=== PATIENT | female | born 1970 | race Caucasian/White ===

== ENCOUNTER 2017-04-11 19:56 | Emergency (ER) | payer BC, OTHER ==
[2017-04-11 20:11] VITALS: BP 189/90
[2017-04-11] MEDS ORDERED: Bupivacaine 0.5%/EPINEPHrine 1:200,000 30 ML SDV INJECT ONE (20:20)
[2017-04-11] MEDS ORDERED: Take Home: Amoxicillin/Clavulanate K 875-125 MG Tab, 2 Tab Pack PO ONE (20:21)
--- NOTE | 2017-04-11 20:45 | EDM.PDOC ---
ED HPI GENERAL MEDICAL PROBLEM - General Chief Complaint: General Stated Complaint: Toothache Time Seen by Provider: 04/11/17 20:07 Source of Information: Reports: Patient History Limitations: Reports: No Limitations - History of Present Illness INITIAL COMMENTS - FREE TEXT/NARRATIVE: Patient states that she started having pain and swelling in her second molar in the right lower jaw yesterday afternoon. She called her dentist to get a refill on her antibiotic for her reoccurring dental abscess, but they stated she would have to be seen first. She was unable to get an appointment that day and thought she could tough it out through the weekend. She states the pain has gotten too bad for her to tolerate. She has hydrocodone at home which has not been effective in relieving the pain. I asked if she would like me to do a dental block for pain relief and she agreed to this. Onset: Gradual Onset Date: 04/10/17 Onset Time: 11:30 Duration: Getting Worse Location: Reports: Other (right lower jaw second molar from the rear) Quality: Reports: Ache, Sharp, Throbbing Severity: Severe Improves with: Reports: None Worsens with: Reports: Eating Associated Symptoms: Reports: No Other Symptoms Treatments FLUID DYNAMICIST: Reports: Acetaminophen, NSAIDS, Other (see below) Other Treatments FLUID DYNAMICIST: Hydrocodone (3) - Related Data Allergies Allergy/AdvReac Type Severity Reaction Status Date / Time No Known Allergies Allergy Verified 04/11/17 20:20 Home Meds: Home Meds Amoxicillin/Potassium Clav [Augmentin 875-125 Tablet] 1 each PO BID #16 tablet 04/11/17 [Rx] Social & Family History - Tobacco Use Smoking Status *Q: Never Smoker - Caffeine Use Caffeine Use: Reports: Soda - Recreational Drug Use Recreational Drug Use: No ED ROS GENERAL - Review of Systems Review Of Systems: See Below Constitutional: Reports: No Symptoms HEENT: Reports: Dental Pain Respiratory: Reports: No Symptoms Cardiovascular: Reports: No Symptoms Endocrine: Reports: No Symptoms GI/Abdominal: Reports: No Symptoms : Reports: No Symptoms Musculoskeletal: Reports: No Symptoms Skin: Reports: No Symptoms Neurological: Reports: No Symptoms Psychiatric: Reports: No Symptoms Hematologic/Lymphatic: Reports: No Symptoms Immunologic: Reports: No Symptoms ED EXAM, GENERAL - Physical Exam Exam: See Below Exam Limited By: No Limitations General Appearance: Alert, WD/WN, No Apparent Distress Eye Exam: Bilateral Eye: Normal Inspection, PERRL Ears: Normal External Exam, Normal Canal, Hearing Grossly Normal, Normal TMs Nose: Normal Inspection, Normal Mucosa, No Blood Throat/Mouth: Normal Lips, Normal Oropharynx, Normal Voice, No Airway Compromise , Other (Tooth #30 cracked crown with increased redness and swelling to the base of the tooth.) Head: Atraumatic, Normocephalic Neck: Normal Inspection, Supple, Non-Tender, Full Range of Motion Respiratory/Chest: No Respiratory Distress, Lungs Clear, Normal Breath Sounds, No Accessory Muscle Use, Chest Non-Tender Cardiovascular: Normal Peripheral Pulses, Regular Rate, Rhythm, No Edema, No Gallop, No JVD, No Murmur, No Rub Peripheral Pulses: 2+: Radial (L), Radial (R) GI/Abdominal: Normal Bowel Sounds, Soft, Non-Tender, No Organomegaly, No Distention, No Abnormal Bruit, No Mass Neurological: Alert, Oriented, Normal Gait Psychiatric: Normal Affect, Normal Mood Skin Exam: Warm, Dry, Intact, Normal Color, No Rash Lymphatic: No Adenopathy Course - Vital Signs Text/Narrative:: Alveolar block of tooth number 30 right lower jaw with 0.5% bupivacaine 5 mL. The patient tolerated this well. She stated that her pain went down to a 3/10 shortly after the injection. Last Recorded V/S: Last Vital Signs Temp 37.2 C 04/11/17 20:09 Pulse 76 04/11/17 20:09 Resp 16 04/11/17 20:09 BP 189/90 H 04/11/17 20:09 Pulse Ox 98 04/11/17 20:09 - Orders/Labs/Meds Meds: Medications Discontinued Medications Generic Name Dose Route Start Last Admin Trade Name Martell PRN Reason Stop Dose Admin Amoxicillin/Clavulanate Potassium 2 packet 04/11/17 20:21 04/11/17 20:32 Take Home: Amox/Clavulanate 875-12, 2 Tab Pac PO 04/11/17 20:22 2 packet ONETIME ONE Administration Bupivacaine HCl/Epinephrine Bitart 30 ml 04/11/17 20:20 04/11/17 20:33 Marcaine 0.5%/Epinephrine 1:200,000 INJECT 04/11/17 20:21 30 ml ONETIME ONE Administration Departure - Departure Time of Disposition: 21:00 Disposition: Home, Self-Care 01 Condition: good Clinical Impression: Dental abscess - Discharge Information Prescriptions: Amoxicillin/Potassium Clav [Augmentin 875-125 Tablet] 1 each PO BID #16 tablet Forms: ED Department Discharge - Assessment/Plan Assessment:: Dental Abscess
== END 2017-04-11 21:25 | disposition home or self-care (01) ==
LOC: VM.ED 19:56
DX: K04.7 Periapical abscess without sinus (principal)
CPT/HCPCS: 99282; A9270; 96372

== ENCOUNTER 2017-04-13 17:53 | Emergency (ER) | payer BC ==
[2017-04-13 18:08] VITALS: BP 120/66
[2017-04-13] MEDS ORDERED: cefTRIAXone 2 GM, Lidocaine 1% 4.2 ML IM ONE ×2 (18:26)
[2017-04-13] MEDS ORDERED: predniSONE 20 MG Tab PO ONE (18:27)
--- NOTE | 2017-04-13 18:32 | EDM.PDOC ---
[id number] abscess Time Seen by Provider: 04/13/17 18:13 Source of Information: Reports: Patient History Limitations: Reports: No Limitations - History of Present Illness INITIAL COMMENTS - FREE TEXT/NARRATIVE: Patient began having tooth pain on Thursday and was seen at the ER here on Thursday and given augmentin. Today she did have her tooth extracted and is here with additional swelling and pain. She was told by her dentist to be seen here. She denies fever, chills, no posterior ear pain, no redness around the swollen area. Her dentist did change the augmentin to clindamycin. She denies any shortness of breath, chest pain. Does endorse some tingling on the right side of her face and neck. Onset Date: 04/10/17 Duration: Getting Worse Location: Reports: Face, Neck Quality: Reports: Ache, Pressure Severity: Moderate Improves with: Reports: Cold Therapy, Medication Associated Symptoms: Reports: No Other Symptoms Right Oral/Mouth Pain Score (Numeric/FACES): 9 - Related Data Allergies Allergy/AdvReac Type Severity Reaction Status Date / Time No Known Allergies Allergy Verified 04/13/17 18:56 Home Meds: Home Meds Amoxicillin/Potassium Clav [Augmentin 875-125 Tablet] 1 each PO BID #16 tablet 04/11/17 [Rx] Hydrochlorothiazide 50 mg PO DAILY 04/11/17 [History] atorvaSTATin [Lipitor] 40 mg PO ONETIME 04/11/17 [History] Past Medical History HEENT History: Reports: Impaired Vision, Other (See Below) Other HEENT History: Cross-eyed 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 Musculoskeletal History: Reports: Arthritis Other Musculoskeletal History: Right knee Social & Family History - Tobacco Use Smoking Status *Q: Never Smoker - Caffeine Use Caffeine Use: Reports: Soda - Recreational Drug Use Recreational Drug Use: No ED ROS ENT - Review of Systems Review Of Systems: See Below Constitutional: Reports: No Symptoms HEENT: Reports: Dental Pain Respiratory: Reports: No Symptoms Cardiovascular: Reports: No Symptoms Endocrine: Reports: No Symptoms GI/Abdominal: Reports: No Symptoms : Reports: No Symptoms Musculoskeletal: Reports: No Symptoms Skin: Reports: No Symptoms Neurological: Reports: No Symptoms Psychiatric: Reports: No Symptoms Hematologic/Lymphatic: Reports: No Symptoms Immunologic: Reports: No Symptoms ED EXAM, ENT - Physical Exam Exam: See Below Exam Limited By: No Limitations General Appearance: Alert, WD/WN, Moderate Distress Eye Exam: Bilateral Eye: EOMI, PERRL Ears: Normal External Exam, Normal TMs Nose: Normal Inspection Mouth/Throat: Bleeding, Dental Tenderness, Gum Swelling, Other (right lower side of mouth is stuffed with gauze) Head: Facial Swelling (right cheek, anterior mouth, right side) Neck: Lymphadenopathy (R) Respiratory/Chest: No Respiratory Distress, Lungs Clear, Normal Breath Sounds, No Accessory Muscle Use, Chest Non-Tender Cardiovascular: Normal Peripheral Pulses, Regular Rate, Rhythm, No Edema GI/Abdominal: Normal Bowel Sounds, Soft, Non-Tender, No Organomegaly Back: Normal Inspection Extremities: Normal Inspection, Normal Range of Motion, Non-Tender Neurological: Alert, Oriented, CN II-XII Intact, Normal Cognition Psychiatric: Normal Affect, Normal Mood Skin: Warm, Dry, Intact, Normal Color Lymphatic: Other (right sided adenopathy) Course - Vital Signs Last Recorded V/S: Last Vital Signs Temp 36.0 C 04/13/17 18:00 Pulse 98 04/13/17 18:00 Resp 18 04/13/17 18:00 BP 120/66 04/13/17 18:00 Pulse Ox 95 04/13/17 18:00 - Orders/Labs/Meds Meds: Medications Discontinued Medications Generic Name Dose Route Start Last Admin Trade Name Martell PRN Reason Stop Dose Admin Ceftriaxone Sodium 2 gm/ 0 gm 04/13/17 18:26 04/13/17 18:50 Lidocaine HCl 4.2 ml IM 04/13/17 18:27 4.2 inj ONETIME ONE Administration Prednisone 40 mg 04/14/17 18:27 Prednisone PO 04/14/17 18:28 ONETIME ONE Prednisone 40 mg 04/13/17 18:27 04/13/17 19:01 Prednisone PO 04/13/17 18:28 40 mg ONETIME ONE Administration Departure - Departure Time of Disposition: 19:03 Disposition: Home, Self-Care 01 Condition: good Clinical Impression: Dental abscess - Discharge Information Instructions: Sepsis, Adult Referrals: Km Joseph MD [Primary Care Provider] - Forms: ED Department Discharge Additional Instructions: You have been given 2 grams of IM rocephin in addition to the clindamycin you are taking You should take a probiotic tablet to prevent a bacteria called C. Diff. that can occur because antibiotics can kill off to many of our good gut bacteria. Please call your dentist with additional concerns and follow up as needed with her. If you begin to have fever over 101.5F, chills, weakness, pain behind your right ear, redness and increasing swelling to your cheek and neck do not hesitate to come back to the ER for further testing. Please call with any questions or concerns. - Problem List & Annotations (1) Dental abscess SNOMED Code(s): 485821942 Code(s): K04.7 - PERIAPICAL ABSCESS WITHOUT SINUS Status: Acute Priority : Medium - Problem List Review Problem List Initiated/Reviewed/Updated: Yes - Assessment/Plan Assessment:: right sided dental abscess Plan: You have been given 2 grams of IM rocephin in addition to the clindamycin you are taking You should take a probiotic tablet to prevent a bacteria called C. Diff. that can occur because antibiotics can kill off to many of our good gut bacteria. Please call your dentist with additional concerns and follow up as needed with her. If you begin to have fever over 101.5F, chills, weakness, pain behind your right ear, redness and increasing swelling to your cheek and neck do not hesitate to come back to the ER for further testing. Please call with any questions or concerns.
[2017-04-14] MEDS ORDERED: predniSONE 20 MG Tab PO ONE (18:27)
== END 2017-04-13 19:03 | disposition home or self-care (01) ==
LOC: VM.ED 17:53
DX: K04.7 Periapical abscess without sinus (principal); M19.90 Unspecified osteoarthritis, unspecified site
CPT/HCPCS: 96372; 99282; A9270; J0696

== ENCOUNTER 2019-05-22 12:50 | Emergency (ER) | payer BC ==
[2019-05-22] MEDS ORDERED: cefTRIAXone 2 GM, Lidocaine 1% 4.2 ML IM ONE ×2 (13:13)
[2019-05-22] MEDS ORDERED: Take Home: Sulfamethoxazole/Trimethoprim 800-160 MG Tab, 2 Tab Pack PO ONE (13:14)
[2019-05-22 14:07] VITALS: BP 130/82
--- NOTE | 2019-05-22 23:39 | EDM.PDOC ---
ED HPI GENERAL MEDICAL PROBLEM - General Chief Complaint: Skin Complaint Stated Complaint: ER VISIT Time Seen by Provider: 05/22/19 13:05 Source of Information: Reports: Patient History Limitations: Reports: No Limitations - History of Present Illness INITIAL COMMENTS - FREE TEXT/NARRATIVE: [place] presents to ER with complaints of erythema and discomfort to R lower extremity. She states that she has had this issue for approx. 4 days. She states that she had been chilled but has not been checking her temp. Denies any chest pain or shortness of breath. Denies any history of cellulitis in the past. She is a non-smoker. She is not diabetic. She states that she is not sure what caused the inflammation. She states that she had has some cracks to her skin if her foot and ankle which may have been a way for bacteria to get through the skin. Onset: Today Onset Date: 05/19/19 Location: Reports: Lower Extremity, Right Quality: Reports: Ache, Burning, Dull Severity: Moderate Improves with: Reports: Rest Right Lower Leg Pain Score (Numeric/FACES): 5 - Related Data Allergies Allergy/AdvReac Type Severity Reaction Status Date / Time No Known Allergies Allergy Verified 05/22/19 14:00 Home Meds: Home Meds atorvaSTATin [Lipitor] 40 mg PO ONETIME 04/11/17 [History] hydroCHLOROthiazide [Hydrochlorothiazide] 50 mg PO DAILY 04/11/17 [History] Meloxicam 15 mg DAILY 05/22/19 [History] Potassium Chloride 10 meq DAILY 05/22/19 [History] Venlafaxine HCl [Venlafaxine ER] 75 mg DAILY 05/22/19 [History] Past Medical History HEENT History: Reports: Impaired Vision, Other (See Below) Other HEENT History: Cross-eyed Cardiovascular History: Reports: High Cholesterol 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 Denies: Fever, Malaise, Weakness HEENT: Reports: No Symptoms Respiratory: Reports: No Symptoms Cardiovascular: Reports: No Symptoms Endocrine: Reports: No Symptoms GI/Abdominal: Reports: No Symptoms : Reports: No Symptoms Musculoskeletal: Reports: Other (see HPI) Skin: Reports: Erythema Neurological: Reports: No Symptoms Psychiatric: Reports: No Symptoms Hematologic/Lymphatic: Reports: No Symptoms Immunologic: Reports: No Symptoms ED EXAM, SKIN/RASH Exam: See Below Exam Limited By: No Limitations General Appearance: Alert, WD/WN, No Apparent Distress Extremities: Normal Capillary Refill, Leg Pain (area if erythema to anteriolateral R lower extremity. No involvement of either the ankle or knee.), Increased Warmth Course - Vital Signs Last Recorded V/S: Last Vital Signs Temp 37.1 C 05/22/19 12:50 Pulse 91 05/22/19 12:50 Resp 16 05/22/19 12:50 BP 130/82 05/22/19 12:50 Pulse Ox 98 05/22/19 12:50 - Orders/Labs/Meds Meds: Medications Discontinued Medications Generic Name Dose Route Start Last Admin Trade Name Martell PRN Reason Stop Dose Admin Ceftriaxone Sodium 2 gm/ 0 gm 05/22/19 13:13 05/22/19 13:30 Lidocaine HCl 4.2 ml IM 05/22/19 13:14 2 inj ONETIME ONE Administration Trimethoprim/Sulfamethoxazole 1 packet 05/22/19 13:14 05/22/19 13:31 Take Home: Sulfameth/Trimet 800-160mg, 2 Pack PO 05/22/19 13:15 1 packet ONETIME ONE Administration Departure - Departure Time of Disposition: 13:50 Disposition: Home, Self-Care 01 Clinical Impression: Cellulitis - Discharge Information Instructions: Cellulitis, Adult Referrals: PCP,Unknown [Primary Care Provider] - Forms: ED Department Discharge Additional Instructions: Bactrim DS 1 twice daily for 10 days Tylenol and ibuprofen for fever/discomfort Recheck in clinic in 5-7 days Drink plenty of fluids - Assessment/Plan Plan: Bactrim DS 1 twice daily for 10 days Tylenol and ibuprofen for fever/discomfort Recheck in clinic in 5-7 days Drink plenty of fluids
== END 2019-05-22 13:40 | disposition home or self-care (01) ==
LOC: VM.ED 12:50
DX: L03.115 Cellulitis of right lower limb (principal); E78.00 Pure hypercholesterolemia, unspecified; F32.9 Major depressive disorder, single episode, unspecified; Z79.899 Other long term (current) drug therapy
CPT/HCPCS: 96372; 99283; A9270; J0696; J2001

== ENCOUNTER 2022-07-29 21:13 | Emergency (ER) | payer BC ==
[2022-07-29] MEDS ORDERED: GI Cocktail Oral Solution 30 ML PO ONE (21:40)
[2022-07-29 21:44] VITALS: BP 133/90; PULSE 70
[2022-07-29] MEDS ORDERED: Lidocaine 4% 1 each Patch TOP SCH (22:30)
[2022-07-29 22:32] LABS: ANION GAP 15.1 mmol/L (5-15)
[2022-07-29] MEDS ORDERED: Morphine 2 MG/ML SYRINGE IM ONE (22:45)
== END 2022-07-29 23:04 | disposition home or self-care (01) ==
LOC: VM.ED 21:13
DX: K21.00 Gastro-esophageal reflux disease with esophagitis, without bleeding (principal); M79.7 Fibromyalgia; Z79.899 Other long term (current) drug therapy; Z90.710 Acquired absence of both cervix and uterus
CPT/HCPCS: 36415; 71045; 80053; 84484; 85025; 96372; 99285; A9270; J2270; 93010; 99284

== ENCOUNTER 2024-07-29 09:19 | Emergency (ER) | payer BC ==
[2024-07-29] MEDS: Lactated Ringers 1,000 ML IV ONE (10:00)
[2024-07-29 10:02] LABS: BASOPHILS PERCENT AUTO 0.5 % (0.2-1.2); EOSINOPHILS ABSOLUTE AUTO 0.5 x10^3/uL (0.0-0.5); EOSINOPHILS PERCENT AUTO 8.4 % (0.0-4.0); HEMOGLOBIN 15.8 g/dL (12.0-16.0); IMMATURE GRAN ABSOLUTE AUTO 0.03 x10^3/uL (0.00-0.07); LYMPHOCYTES ABSOLUTE AUTO 1.5 x10^3/uL (1.0-4.8); LYMPHOCYTES PERCENT AUTO 23.2 % (25.0-50.0); MEAN CORPUSCULAR HGB CONC 34.3 g/dL (32.0-36.0); MEAN CORPUSCULAR VOLUME 90.4 fL (78.0-93.0); MONOCYTES ABSOLUTE AUTO 0.5 x10^3/uL (0.0-0.8); MONOCYTES PERCENT AUTO 8.6 % (2.0-11.0); NEUTROPHILS ABSOLUTE AUTO 3.7 x10^3/uL (1.8-7.7); NEUTROPHILS PERCENT AUTO 58.8 % (50.0-80.0); PLATELET COUNT,PLT 269 x10^3/uL (130-400); RED BLOOD CELL COUNT 5.09 x10^6/uL (4.00-5.50); WHITE BLOOD CELL COUNT,WBC 6.3 x10^3/uL (4.0-10.0)
[2024-07-29] MEDS: LORazepam 2 MG/ML SDV IVPUSH ONE (10:05)
[2024-07-29 10:10] LABS: CALCIUM 9.3 mg/dL (8.5-10.1); CREATININE 0.8 mg/dL (0.55-1.02); EST CRCL DRUG DOSING (CG) 83.04 mL/min
[2024-07-29] MEDS: Prochlorperazine 10 MG/2 ML SDV IV ONE (10:10)
[2024-07-29 10:49] VITALS: PULSE 57
[2024-07-29 11:08] VITALS: BP 98/52
== END 2024-07-29 12:08 | disposition home or self-care (01) ==
LOC: VM.ED 09:19
DX: R42 Dizziness and giddiness (principal); E78.00 Pure hypercholesterolemia, unspecified; Z90.710 Acquired absence of both cervix and uterus; Z79.899 Other long term (current) drug therapy
CPT/HCPCS: 80048; 85025; 96361; 96374; 96375; 99284; 99284-25; J0780; J2060; J7120

== ENCOUNTER 2024-12-27 15:46 | Inpatient (IN) | payer BC ==
[2024-12-27] MEDS: HYDROmorphone 1 MG/ML Syringe IVPUSH ONE ×3 (16:31→21:45)
[2024-12-27] MEDS: Ondansetron 4 MG/2 ML SDV IVPUSH ONE (16:34)
[2024-12-27 16:38] LABS: BASOPHILS PERCENT AUTO 0.4 % (0.2-1.2); EOSINOPHILS ABSOLUTE AUTO 0.4 x10^3/uL (0.0-0.5); EOSINOPHILS PERCENT AUTO 4.4 % (0.0-4.0); HEMATOCRIT 44.8 % (33.0-47.0); HEMOGLOBIN 15.5 g/dL (12.0-16.0); IMMATURE GRAN ABSOLUTE AUTO 0.02 x10^3/uL (0.00-0.07); LYMPHOCYTES ABSOLUTE AUTO 1.9 x10^3/uL (1.0-4.8); LYMPHOCYTES PERCENT AUTO 23.5 % (25.0-50.0); MEAN CORPUSCULAR HEMOGLOBIN 31.5 pg (26.0-32.0); MEAN CORPUSCULAR HGB CONC 34.6 g/dL (32.0-36.0); MEAN CORPUSCULAR VOLUME 91.1 fL (78.0-93.0); MONOCYTES ABSOLUTE AUTO 0.8 x10^3/uL (0.0-0.8); MONOCYTES PERCENT AUTO 9.6 % (2.0-11.0); NEUTROPHILS PERCENT AUTO 61.9 % (50.0-80.0); PLATELET COUNT,PLT 288 x10^3/uL (130-400); RED BLOOD CELL COUNT 4.92 x10^6/uL (4.00-5.50); WHITE BLOOD CELL COUNT,WBC 8.1 x10^3/uL (4.0-10.0)
[2024-12-27 16:43] LABS: APPEARANCE,URINE SLIGHTLY CLOUDY (CLEAR); BILIRUBIN,URINE SMALL (NEGATIVE); COLOR,URINE DARK YELLOW (YELLOW); GLUCOSE,URINE NEGATIVE (NEGATIVE); KETONES,URINE NEGATIVE (NEGATIVE); LEUKOCYTE ESTERASE,URINE NEGATIVE (NEGATIVE); NITRITE,URINE NEGATIVE (NEGATIVE); OCCULT BLOOD,URINE NEGATIVE (NEGATIVE); PROTEIN,URINE 30 mg/dL (NEGATIVE)
[2024-12-27 16:59] LABS: BACTERIA,URINE FEW /HPF (NOT SEEN); RBC,URINE 0-5 /HPF (NOT SEEN); SQUAMOUS EPITHELIAL CELLS,UR MODERATE /HPF (NOT SEEN); WBC,URINE 0-5 /HPF (NOT SEEN)
[2024-12-27 17:12] LABS: A/G RATIO 0.76; ALBUMIN 3.7 g/dL (3.4-5.0); ANION GAP 8.5 mmol/L (5-15); BILIRUBIN TOTAL 1.5 mg/dL (0.2-1.0); CALCIUM 9.4 mg/dL (8.5-10.1); CREATININE 0.7 mg/dL (0.55-1.02); EST CRCL DRUG DOSING (CG) 94.9 mL/min; POTASSIUM,K 3.5 mmol/L (3.5-5.1); PROTEIN TOTAL,TP 8.6 g/dL (6.4-8.2)
[2024-12-27] MEDS: Iopamidol 612 MG/ML 100 ML Bottle IVPUSH ONE (17:41)
[2024-12-27] MEDS: NS + KCl 20mEq/L 1,000 ML IV SCH (22:38)
[2024-12-27] MEDS: HYDROmorphone 0.5 MG/0.5 ML Syringe IVPUSH PRN (23:54)
[2024-12-28] MEDS: diphenhydrAMINE 50 MG/ML SDV IVPUSH PRN (00:18)
[2024-12-28 06:54] LABS: BASOPHILS PERCENT AUTO 0.4 % (0.2-1.2); EOSINOPHILS ABSOLUTE AUTO 0.5 x10^3/uL (0.0-0.5); HEMATOCRIT 42.5 % (33.0-47.0); HEMOGLOBIN 14.5 g/dL (12.0-16.0); IMMATURE GRAN ABSOLUTE AUTO 0.02 x10^3/uL (0.00-0.07); LYMPHOCYTES ABSOLUTE AUTO 1.6 x10^3/uL (1.0-4.8); LYMPHOCYTES PERCENT AUTO 23.4 % (25.0-50.0); MEAN CORPUSCULAR HEMOGLOBIN 31.7 pg (26.0-32.0); MEAN CORPUSCULAR HGB CONC 34.1 g/dL (32.0-36.0); MEAN CORPUSCULAR VOLUME 92.8 fL (78.0-93.0); MONOCYTES ABSOLUTE AUTO 0.7 x10^3/uL (0.0-0.8); MONOCYTES PERCENT AUTO 9.9 % (2.0-11.0); PLATELET COUNT,PLT 246 x10^3/uL (130-400); RED BLOOD CELL COUNT 4.58 x10^6/uL (4.00-5.50); WHITE BLOOD CELL COUNT,WBC 6.8 x10^3/uL (4.0-10.0)
[2024-12-28 07:18] LABS: A/G RATIO 0.77; ALBUMIN 3.4 g/dL (3.4-5.0); BILIRUBIN TOTAL 1.6 mg/dL (0.2-1.0); CALCIUM 8.9 mg/dL (8.5-10.1); CREATININE 0.7 mg/dL (0.55-1.02); EST CRCL DRUG DOSING (CG) 94.9 mL/min; POTASSIUM,K 3.6 mmol/L (3.5-5.1); PROTEIN TOTAL,TP 7.8 g/dL (6.4-8.2)
[2024-12-28 07:19] LABS: ANION GAP 9.6 mmol/L (5-15)
[2024-12-28] MEDS: Ondansetron 4 MG/2 ML SDV IV PRN (07:51)
[2024-12-28] MEDS: Venlafaxine 75 MG Cap.ER PO SCH ×2 (08:03→10:14)
[2024-12-28] MEDS: atorvaSTATin 40 MG Tab PO SCH (08:03)
[2024-12-28] MEDS ORDERED: HYDROmorphone 1 MG/ML Syringe IVPUSH PRN (08:11)
[2024-12-28] MEDS: Sennosides/Docusate Sodium 50-8.6 MG Tab PO SCH (10:15)
[2024-12-28] MEDS: Venlafaxine 75 MG Cap.ER PO ONE (10:15)
[2024-12-28] MEDS: Pantoprazole 40 MG Vial IVPUSH SCH (10:15)
[2024-12-28] MEDS: Ketorolac 15 MG/ML SDV IVPUSH PRN (10:21)
[2024-12-28] MEDS: Acetaminophen/HYDROcodone 325-5 MG Tab PO PRN (13:27)
[2024-12-28] MEDS: Enoxaparin 40 MG/0.4 ML Syringe SUBCUT SCH (21:07)
[2024-12-29] MEDS: oxyCODONE 5 MG Tab PO PRN ×2 (03:31→10:00)
[2024-12-29 07:20] LABS: BASOPHILS PERCENT AUTO 0.5 % (0.2-1.2); EOSINOPHILS ABSOLUTE AUTO 0.3 x10^3/uL (0.0-0.5); EOSINOPHILS PERCENT AUTO 6.2 % (0.0-4.0); HEMOGLOBIN 13.3 g/dL (12.0-16.0); IMMATURE GRAN ABSOLUTE AUTO 0.01 x10^3/uL (0.00-0.07); LYMPHOCYTES ABSOLUTE AUTO 1.2 x10^3/uL (1.0-4.8); MEAN CORPUSCULAR HEMOGLOBIN 31.2 pg (26.0-32.0); MEAN CORPUSCULAR HGB CONC 33.3 g/dL (32.0-36.0); MEAN CORPUSCULAR VOLUME 93.9 fL (78.0-93.0); MONOCYTES ABSOLUTE AUTO 0.4 x10^3/uL (0.0-0.8); MONOCYTES PERCENT AUTO 8.6 % (2.0-11.0); NEUTROPHILS ABSOLUTE AUTO 2.2 x10^3/uL (1.8-7.7); NEUTROPHILS PERCENT AUTO 54.5 % (50.0-80.0); PLATELET COUNT,PLT 189 x10^3/uL (130-400); RED BLOOD CELL COUNT 4.26 x10^6/uL (4.00-5.50); WHITE BLOOD CELL COUNT,WBC 4.1 x10^3/uL (4.0-10.0)
[2024-12-29 07:46] LABS: A/G RATIO 0.75; BILIRUBIN TOTAL 1.4 mg/dL (0.2-1.0); CALCIUM 8.1 mg/dL (8.5-10.1); CREATININE 0.6 mg/dL (0.55-1.02); EST CRCL DRUG DOSING (CG) 110.72 mL/min; POTASSIUM,K 3.8 mmol/L (3.5-5.1)
[2024-12-29 07:48] LABS: ANION GAP 9.8 mmol/L (5-15)
[2024-12-29] MEDS ORDERED: diphenhydrAMINE 25 MG Cap PO PRN (08:56)
[2024-12-29] MEDS: Bisacodyl 5 MG Tab PO ONE (09:50)
[2024-12-29] MEDS: Potassium Chloride 10 MEQ Tab.ER PO SCH (10:58)
[2024-12-29] MEDS: Hydrochlorothiazide 25 MG Tab PO SCH (10:59)
[2024-12-29] MEDS: Polyethylene Glycol 3350 Powder 17 GM Packet PO SCH (11:01)
[2024-12-29] MEDS: methylPREDNISolone Sodium Succinate 40 MG/1 ML SDV IVPUSH SCH (11:01)
[2024-12-29] MEDS: tiZANidine 4 MG Tab PO PRN (21:43)
[2024-12-29] MEDS: Bisacodyl 5 MG Tab PO PRN (22:43)
[2024-12-30 07:14] LABS: BASOPHILS PERCENT AUTO 0.3 % (0.2-1.2); EOSINOPHILS ABSOLUTE AUTO 0.1 x10^3/uL (0.0-0.5); EOSINOPHILS PERCENT AUTO 0.9 % (0.0-4.0); HEMATOCRIT 36.9 % (33.0-47.0); HEMOGLOBIN 12.7 g/dL (12.0-16.0); IMMATURE GRAN ABSOLUTE AUTO 0.02 x10^3/uL (0.00-0.07); LYMPHOCYTES ABSOLUTE AUTO 1.4 x10^3/uL (1.0-4.8); MEAN CORPUSCULAR HEMOGLOBIN 31.6 pg (26.0-32.0); MEAN CORPUSCULAR HGB CONC 34.4 g/dL (32.0-36.0); MEAN CORPUSCULAR VOLUME 91.8 fL (78.0-93.0); MONOCYTES ABSOLUTE AUTO 0.5 x10^3/uL (0.0-0.8); MONOCYTES PERCENT AUTO 6.5 % (2.0-11.0); NEUTROPHILS ABSOLUTE AUTO 5.4 x10^3/uL (1.8-7.7); PLATELET COUNT,PLT 199 x10^3/uL (130-400); RED BLOOD CELL COUNT 4.02 x10^6/uL (4.00-5.50); WHITE BLOOD CELL COUNT,WBC 7.4 x10^3/uL (4.0-10.0)
[2024-12-30 07:30] LABS: A/G RATIO 0.78; ALBUMIN 3.1 g/dL (3.4-5.0); BILIRUBIN TOTAL 0.8 mg/dL (0.2-1.0); CALCIUM 8.9 mg/dL (8.5-10.1); CREATININE 0.6 mg/dL (0.55-1.02); EST CRCL DRUG DOSING (CG) 110.72 mL/min; POTASSIUM,K 3.4 mmol/L (3.5-5.1); PROTEIN TOTAL,TP 7.1 g/dL (6.4-8.2)
[2024-12-30 07:31] LABS: ANION GAP 7.4 mmol/L (5-15)
[2024-12-30] MEDS: Potassium Chloride 20 MEQ Tab.ER PO ONE (08:43)
[2024-12-30] MEDS: Omeprazole 20 MG Cap.CR PO SCH (08:45)
[2024-12-30 13:50] VITALS: BP 120/68; PULSE 70
[2024-12-31 13:07] LABS: HSV1-GLYCO-G AB,IGGBYCIA 1.78 IV (<=0.89); HSV2-GLYCO-G AB,IGGBYCIA 0.03 IV (<=0.89)
[2024-12-31 14:06] LABS: HBS AB <3.10 IU/L; HEP B SURFACE AG Negative (Negative)
[2024-12-31 15:07] LABS: HBC IGM Negative (Negative)
[2024-12-31 16:01] LABS: HEPATITIS A TOTAL Positive (Negative)
[2024-12-31 17:07] LABS: HCV AB BY CIA INTERP Negative (Negative); HEPC AB BY CIA INDEX 0.15 IV
[2025-01-02 11:07] LABS: HEPATITIS BE ANTIGEN Negative (Negative)
[2025-01-02 15:07] LABS: CMV QNT BY NAAT, INTERP,PL Not Detected (Not Detected); CMV QNT BY NAAT, IU/ML,PL Not Detected; CMV QNT BY NAAT, LOGIU/ML,PL Not Detected log IU/mL
[2025-01-02 17:07] LABS: EBV QNT BY NAAT,INTERP,PLASMA Not Detected (Not Detected); EBV QNT BY NAAT,IU/ML,PLASMA Not Detected; EBV QNT BY NAAT,LOG,IU/ML,PLAS Not Detected log IU/mL
== END 2024-12-30 12:00 | disposition home or self-care (01) ==
LOC: VM.ED 15:46 → VM.MS 19:36
PROVIDERS: ADMIT Family Medicine; ATTEND Internal Medicine
DX: B17.9 Acute viral hepatitis, unspecified (principal); K56.7 Ileus, unspecified; K75.81 Nonalcoholic steatohepatitis (NASH); F32.A Depression, unspecified; E78.00 Pure hypercholesterolemia, unspecified; M19.90 Unspecified osteoarthritis, unspecified site; M32.9 Systemic lupus erythematosus, unspecified; E78.5 Hyperlipidemia, unspecified; I10 Essential (primary) hypertension; E66.9 Obesity, unspecified; K59.09 Other constipation; R74.01 Elevation of levels of liver transaminase levels; E87.6 Hypokalemia; R09.02 Hypoxemia; F43.23 Adjustment disorder with mixed anxiety and depressed mood; H54.7 Unspecified visual loss; Z79.899 Other long term (current) drug therapy; Z90.89 Acquired absence of other organs; Z98.890 Other specified postprocedural states; Z90.710 Acquired absence of both cervix and uterus; Z68.36 Body mass index [BMI] 36.0-36.9, adult; Z90.49 Acquired absence of other specified parts of digestive tract
CPT/HCPCS: 36415; 71046; 74019; 74177; 76705; 80053; 81001; 82140; 83690; 83735; 83880; 85025; 85610; 85652; 86140; 86695; 86696; 86705; 86706; 86708; 86709; 86803; 87340; 87350; 87497; 87799; 94760; 96374; 96375; 96376; 97161-GP; 99223; 99223-GT; 99284; 99285-25; A9270-GY; J1171; J1200; J1650; J1885; J2405; J2470; J2919; J3480; Q3014; Q9967